=== PATIENT | male | born 1990 | race American Indian/Alaskan Native ===

== ENCOUNTER 2019-08-02 14:12 | Inpatient (IN) | payer OTHER ==
--- NOTE | 2019-08-02 14:39 | Event Note ---
ED Screening Note Date of service: 08/02/19 ED Screening Note: c/o thirst. N/V, and malaise x 1 week states weight loss +urinary frequency This initial assessment/diagnostic orders/clinical plan/treatment(s) is/are subject to change based on patients health status, clinical progression and re- assessment by fellow clinical providers in the ED. Further treatment and workup at subsequent clinical providers discretion. Patient/guardian urged not to elope from the ED as their condition may be serious if not clinically assessed and managed. Initial orders include: labs
[2019-08-02 16:10] LABS: Basophils % (Auto) 0.6 % (0.0-1.8); Eosinophils % (Auto) 0.2 % (0.0-4.3); Hematocrit 46.3 % (35.5-45.6); Hemoglobin 15.6 gm/dl (11.8-15.2); Lymphocytes # (Auto) 1.8 K/mm3 (1.2-5.4); Lymphocytes % (Auto) 23.4 % (13.4-35.0); Mean Corpuscular HGB Conc 34 % (32-34); Mean Corpuscular Volume 93 fl (84-94); Monocytes # (Auto) 0.3 K/mm3 (0.0-0.8); Monocytes % (Auto) 4.6 % (0.0-7.3); Platelet Count 290 K/mm3 (140-440); Red Blood Count 4.97 M/mm3 (3.65-5.03); Red Cell Distribution Width 13.1 % (13.2-15.2)
[2019-08-02 16:33] LABS: Alanine Aminotransferase 39 units/L (7-56); Albumin 4.5 g/dL (3.9-5); BUN/Creatinine Ratio 18; Blood Urea Nitrogen 16 mg/dL (9-20); Calcium 9.4 mg/dL (8.4-10.2); Hemolysis Index 26
[2019-08-02] MEDS ORDERED: SODIUM CHLORIDE 0.9% 1000 ML 1,000 ML IV ONE ×2 (17:04→17:05)
--- NOTE | 2019-08-02 17:11 | Emergency Department Report ---
ED General Adult HPI - General Chief complaint: Weakness Stated complaint: FLU LIKE SYMPTOMS Time Seen by Provider: 08/02/19 14:34 Source: patient Mode of arrival: Ambulatory Limitations: No Limitations - History of Present Illness Initial comments: 28-year-old male with known past medical history presents to ED with generalized weakness 2 weeks. Patient reports associated increased thirst and urination. Patient reports a couple episodes of nausea and vomiting. Denies any fever, abdominal pain, cough. -: week(s) (2) Severity scale (0 -10): 0 Consistency: constant Improves with: none Worsens with: none Associated Symptoms: malaise, nausea/vomiting, weakness. denies: chest pain, cough, fever/chills, headaches, shortness of breath Treatments Prior to Arrival: none - Related Data Allergies Allergy/AdvReac Type Severity Reaction Status Date / Time No Known Allergies Allergy Unverified 08/02/19 14:14 ED Review of Systems ROS: Stated complaint: FLU LIKE SYMPTOMS Other details as noted in HPI Comment: All other systems reviewed and negative Constitutional: denies: chills, fever Respiratory: denies: cough, shortness of breath Cardiovascular: denies: chest pain Endocrine: increased thirst, increased urine, unexplained weight loss Gastrointestinal: nausea, vomiting. denies: abdominal pain ED Past Medical Hx - Past Medical History Previous Medical History?: Yes Hx Kidney Stones: Yes (2014) - Surgical History Past Surgical History?: No - Social History Smoking Status: Current Every Day Smoker Substance Use Type: Alcohol, Marijuana ED Physical Exam - General Limitations: No Limitations General appearance: alert, in no apparent distress - Head Head exam: Present: atraumatic, normocephalic - Eye Eye exam: Present: normal appearance, EOMI - ENT ENT exam: Present: mucous membranes moist - Neck Neck exam: Present: normal inspection - Respiratory Respiratory exam: Present: normal lung sounds bilaterally. Absent: respiratory distress - Cardiovascular Cardiovascular Exam: Present: regular rate, normal rhythm - GI/Abdominal GI/Abdominal exam: Present: soft. Absent: distended, tenderness - Extremities Exam Extremities exam: Present: normal inspection - Neurological Exam Neurological exam: Present: alert, oriented X3 - Psychiatric Psychiatric exam: Present: normal affect, normal mood - Skin Skin exam: Present: warm, dry, intact, normal color ED Course Vital Signs 08/02/19 14:39 Temperature 97.4 F L Pulse Rate 74 Respiratory 16 Rate Blood Pressure 155/94 [Right] O2 Sat by Pulse 100 Oximetry ED Medical Decision Making - Lab Data Result diagrams: 08/02/19 15:32 08/02/19 20:32 - Medical Decision Making Pt w/ new-onset diabetes. Found to be in DKA. Glucose 588, bicarb 16, anion gap 32, VBG 7.196. Serum ketones present. IV fluids administered, insulin drip initiated. Pt will be admitted to [facility], Dr Stone, for further katherinemarc vasquez. - Differential Diagnosis hyperglycemia, DKA Critical Care Time: Yes Critical care time in (mins) excluding proc time.: 35 Critical care attestation.: If time is entered above; I have spent that time in minutes in the direct care of this critically ill patient, excluding procedure time. Critical Care Time: 35 minutes ED Disposition Clinical Impression: Diabetes mellitus, new onset, Diabetic ketoacidosis Disposition: OP ADMIT IP TO THIS HOSP Is pt being admited?: Yes Condition: Stable Time of Disposition: 17:23
[2019-08-02] MEDS ORDERED: INSULIN REGULAR, HUMAN 100 UNITS in SODIUM CHLORIDE 0.9% 99 ML IV SCH ×2 (18:00→19:00)
--- NOTE | 2019-08-02 18:05 | History and Physical Report ---
History of Present Illness Date of examination: 08/02/19 Date of admission: 08/02/2019 Chief complaint: Gen weakness for 2 weeks. N/V for 2 days History of present illness: 28-year-old male with known past medical history presents to ED with generalized weakness 2 weeks. Patient reports associated increased thirst and urination. Patient reports a few episodes of nausea and vomiting for 2 days. Denies any fever, abdominal pain, cough. -: week(s) (2) Severity scale (0 -10): 0 Consistency: constant Improves with: none Worsens with: none Associated Symptoms: malaise, nausea/vomiting, weakness. denies: chest pain, cough, fever/chills, headaches, shortness of breath Treatments Prior to Arrival: none Past Medical History Previous Medical History?: Yes Hx Kidney Stones: Yes (2014) Surgical History Past Surgical History?: No Social History Smoking Status: Current Every Day Smoker Substance Use Type: Alcohol, Marijuana Family History Htn Review of Systems ROS: Stated complaint: FLU LIKE SYMPTOMS Other details as noted in HPI Comment: All other systems reviewed and negative Constitutional: denies: chills, fever,Increased thirst,Increased urination and increased appetite. Respiratory: denies: cough, shortness of breath Cardiovascular: denies: chest pain Endocrine: increased thirst, increased urine, unexplained weight loss Gastrointestinal: nausea, vomiting for 2 days denies: abdominal pain Medications and Allergies Allergies Allergy/AdvReac Type Severity Reaction Status Date / Time No Known Allergies Allergy Unverified 08/02/19 14:14 Home Medications Medication Instructions Recorded Confirmed Last Taken Type No Known Home Medications [No 08/03/19 08/03/19 Unknown History Reported Home Medications] Active Meds: Active Medications Insulin Human Regular 100 (units/ Sodium Chloride) 100 mls @ 1 mls/hr IV TITR TEMI; Protocol Last Admin: 08/02/19 17:48 Dose: 8 units/hr, 8 mls/hr Documented by: Sodium Chloride (Nacl 0.9% 1000 Ml) 1,000 mls @ 999 mls/hr IV BOLUS ONE Stop: 08/02/19 18:05 Exam - Constitutional Vitals: Temp Pulse Resp BP Pulse Ox 97.4 F L 74 16 155/94 100 08/02/19 14:39 08/02/19 14:39 08/02/19 14:39 08/02/19 14:39 08/02/19 14:39 General appearance: Present: no acute distress, well-nourished - EENT Eyes: Present: PERRL ENT: hearing intact, clear oral mucosa - Neck Neck: Present: supple, normal ROM - Respiratory Respiratory effort: normal Respiratory: bilateral: CTA - Cardiovascular Heart rate: 78 Rhythm: regular Heart Sounds: Present: S1 & S2. Absent: rub, click - Extremities Extremities: no ischemia, pulses intact, pulses symmetrical, No edema Peripheral Pulses: within normal limits - Abdominal General gastrointestinal: Present: soft, non-tender, non-distended, normal bowel sounds Male genitourinary: Present: normal - Rectal Rectal Exam: deferred - Integumentary Integumentary: Present: clear, warm, dry - Musculoskeletal Musculoskeletal: gait normal, strength equal bilaterally - Psychiatric Psychiatric: appropriate mood/affect, intact judgment & insight - Neurologic Neurologic: CNII-XII intact, moves all extremities - Allied Health Allied health notes reviewed: nursing, case management Results - Labs CBC & Chem 7: 08/02/19 15:32 08/03/19 04:15 Labs: Laboratory Last Values WBC 7.6 K/mm3 (4.5-11.0) 08/02/19 15:32 RBC 4.97 M/mm3 (3.65-5.03) 08/02/19 15:32 Hgb 15.6 gm/dl (11.8-15.2) H 08/02/19 15:32 Hct 46.3 % (35.5-45.6) H 08/02/19 15:32 MCV 93 fl (84-94) 08/02/19 15:32 MCH 31 pg (28-32) 08/02/19 15:32 MCHC 34 % (32-34) 08/02/19 15:32 RDW 13.1 % (13.2-15.2) L 08/02/19 15:32 Plt Count 290 K/mm3 (140-440) 08/02/19 15:32 Lymph % (Auto) 23.4 % (13.4-35.0) 08/02/19 15:32 [place] % (Auto) 4.6 % (0.0-7.3) 08/02/19 15:32 Eos % (Auto) 0.2 % (0.0-4.3) 08/02/19 15:32 Baso % (Auto) 0.6 % (0.0-1.8) 08/02/19 15:32 Lymph # 1.8 K/mm3 (1.2-5.4) 08/02/19 15:32 [place] # 0.3 K/mm3 (0.0-0.8) 08/02/19 15:32 Eos # 0.0 K/mm3 (0.0-0.4) 08/02/19 15:32 Baso # 0.0 K/mm3 (0.0-0.1) 08/02/19 15:32 Seg Neutrophils % 71.2 % (40.0-70.0) H 08/02/19 15:32 Seg Neutrophils # 5.4 K/mm3 (1.8-7.7) 08/02/19 15:32 Sodium 129 mmol/L (137-145) L 08/02/19 15:32 Potassium 4.6 mmol/L (3.6-5.0) 08/02/19 15:32 Chloride 85.9 mmol/L (98-107) L 08/02/19 15:32 Carbon Dioxide 16 mmol/L (22-30) L 08/02/19 15:32 Anion Gap 32 mmol/L 08/02/19 15:32 BUN 16 mg/dL (9-20) 08/02/19 15:32 Creatinine 0.9 mg/dL (0.8-1.5) 08/02/19 15:32 Estimated GFR > 60 ml/min 08/02/19 15:32 BUN/Creatinine Ratio 18 % 08/02/19 15:32 Glucose 588 mg/dL (75-100) H* 08/02/19 15:32 POC Glucose 434 (70-105) H 08/02/19 17:34 Calcium 9.4 mg/dL (8.4-10.2) 08/02/19 15:32 Total Bilirubin 0.60 mg/dL (0.1-1.2) 08/02/19 15:32 AST 44 units/L (5-40) H 08/02/19 15:32 ALT 39 units/L (7-56) 08/02/19 15:32 Alkaline Phosphatase 95 units/L (35-129) 08/02/19 15:32 Total Protein 7.6 g/dL (6.3-8.2) 08/02/19 15:32 Albumin 4.5 g/dL (3.9-5) 08/02/19 15:32 Albumin/Globulin Ratio 1.5 % 08/02/19 15:32 Short CBC 08/02/19 Range/Units 15:32 WBC 7.6 (4.5-11.0) K/mm3 Hgb 15.6 H (11.8-15.2) gm/dl Hct 46.3 H (35.5-45.6) % Plt Count 290 (140-440) K/mm3 BMP 08/02/19 08/02/19 08/02/19 15:32 18:00 18:45 Sodium 129 L 124 L 127 L Potassium 4.6 5.3 H 4.3 Chloride 85.9 L 87.0 L 92.7 L Carbon Dioxide 16 L 14 L 14 L BUN 16 19 18 Creatinine 0.9 0.8 0.9 Glucose 588 H* 486 H 372 H Calcium 9.4 9.6 9.0 08/02/19 08/02/19 08/03/19 20:32 22:50 04:15 Sodium 132 L 133 L 138 Potassium 4.1 3.9 3.3 L Chloride 97.2 L 98.2 102.5 Carbon Dioxide 20 L 22 22 BUN 16 14 10 Creatinine 0.8 0.7 L 0.7 L Glucose 238 H 243 H 73 L Calcium 8.5 8.6 8.7 Liver Function 08/02/19 Range/Units 15:32 Total Bilirubin 0.60 (0.1-1.2) mg/dL AST 44 H (5-40) units/L ALT 39 (7-56) units/L Alkaline Phosphatase 95 (35-129) units/L Albumin 4.5 (3.9-5) g/dL Urine 08/02/19 Range/Units 18:18 Urine Color Straw (Yellow) Urine pH 5.0 (5.0-7.0) Ur Specific [place] 1.027 (1.003-1.030) Urine Protein <15 mg/dl (Negative) mg/dL Urine Glucose (UA) >=500 (Negative) mg/dL Assessment and Plan Assessment and plan: CCT 40 minutes Advance Directives: Yes (Full code) VTE prophylaxis?: Chemical Plan of care discussed with patient/family: Yes - Patient Problems (1) Diabetic ketoacidosis Current Visit: Yes Status: Acute Qualifiers: Diabetes mellitus type: other specified (including JASWANT) Diabetes mellitus complication detail: without coma Qualified Code(s): E13.10 - Other specified diabetes mellitus with ketoacidosis without coma Plan to address problem: DKA protocol. IV insulin drip and IV fluids Anion gap 32. ICU admission Ketones 80 in urine. Question is whether he is JASWANT or Type 1 diabetes.More in favor of JASWANT-Mature onset of Diabetes in Young.It is important bcoz whether he can be managed on oral hypoglycemics Needs referral to Endocrinology after discharge. (2) Hyponatremia Current Visit: Yes Status: Acute Plan to address problem: Should self correct with IV NS and IV INSULIN> (3) DVT prophylaxis Current Visit: Yes Status: Acute Plan to address problem: On Heparin and GI prophylaxis
[2019-08-02] MEDS ORDERED: oxyCODONE /ACETAMINOPHEN 5-325MG TAB PO PRN (18:06)
[2019-08-02] MEDS ORDERED: HYDROmorphone 1 MG/1 ML INJ IV PRN (18:06)
[2019-08-02] MEDS ORDERED: ONDANSETRON 4 MG/2 ML INJ IV PRN (18:06)
[2019-08-02] MEDS ORDERED: ACETAMINOPHEN 325 MG TAB PO PRN (18:06)
[2019-08-02] MEDS ORDERED: MORPHINE 2 MG/1 ML INJ IV PRN (18:06)
[2019-08-02] MEDS ORDERED: DEXTROSE 50% IN WATER (25GM) 50 ML SYRINGE IV PRN (18:13)
[2019-08-02 18:31] LABS: Bilirubin,Urine NEG (Negative); Blood,Urine SM (Negative); Color,Urine Straw (Yellow); Mucus,Urine FEW /HPF; Protein,Urine <15 mg/dL mg/dL (Negative); Urobilinogen,Urine < 2.0 mg/dL (<2.0); WBC,Urine < 1.0 /HPF (0.0-6.0)
[2019-08-02 18:36] LABS: BUN/Creatinine Ratio 24; Blood Urea Nitrogen 19 mg/dL (9-20); Calcium 9.6 mg/dL (8.4-10.2); Hemolysis Index 27
[2019-08-02] MEDS ORDERED: D5W/0.45% NACL/KCL 20 MEQ 20 MEQ/1,000 ML BAG IV SCH (19:00)
[2019-08-02 19:01] LABS: BUN/Creatinine Ratio 20; Blood Urea Nitrogen 18 mg/dL (9-20); Hemolysis Index 15
[2019-08-02] MEDS: POTASSIUM CHLORIDE 10 MEQ 10 MEQ/100 ML BAG IV SCH ×5 (19:46→23:00)
[2019-08-02] MEDS ORDERED: SODIUM CHLORIDE 0.9% 1000 ML 1,000 ML ONE (20:00)
[2019-08-02] MEDS ORDERED: POTASSIUM CHLORIDE 10 MEQ 10 MEQ/100 ML BAG IV ONE (20:55)
[2019-08-02 20:59] LABS: BUN/Creatinine Ratio 20; Blood Urea Nitrogen 16 mg/dL (9-20); Calcium 8.5 mg/dL (8.4-10.2); Hemolysis Index 4
[2019-08-02 23:39] LABS: BUN/Creatinine Ratio 20; Blood Urea Nitrogen 14 mg/dL (9-20); Calcium 8.6 mg/dL (8.4-10.2); Hemolysis Index 12
[2019-08-03] MEDS ORDERED: SODIUM CHLORIDE 0.9% 1000 ML 1,000 ML IV SCH (00:30)
[2019-08-03 04:52] LABS: BUN/Creatinine Ratio 14; Blood Urea Nitrogen 10 mg/dL (9-20); Calcium 8.7 mg/dL (8.4-10.2); Hemolysis Index 6
[2019-08-03] MEDS ORDERED: POTASSIUM CHLORIDE ER 20 MEQ TAB PO ONE ×2 (05:02→14:00)
[2019-08-03] MEDS ORDERED: DEXTROSE 50% IN WATER (25GM) 50 ML SYRINGE IV PRN (05:02)
[2019-08-03] MEDS: POTASSIUM CHLORIDE 10 MEQ 10 MEQ/100 ML BAG IV SCH ×5 (05:30→05:36)
[2019-08-03] MEDS: INSULIN LISPRO 100 UNIT/ML SUB-Q SCH ×4 (08:00→22:22)
[2019-08-03] MEDS ORDERED: INSULIN GLARGINE 100 UNITS/ML SUB-Q SCH (08:00)
[2019-08-03] MEDS: HEPARIN 5,000 UNIT/1 ML VIAL SUB-Q SCH ×2 (09:19→22:22)
[2019-08-03] MEDS: FAMOTIDINE 10 MG TAB PO SCH ×2 (09:20→22:23)
--- NOTE | 2019-08-03 09:34 | Progress Note ---
Assessment and Plan Assessment and plan: Diabetic ketoacidosis Patient was started on Insulin drip now off Insulin drip On Lantus bid Started on diet May switch to Novolin 70/30 bid Transfer to [facility] New onset diabetes mellitus Just now diagnosed this admission [employer] consult Hyponatremia Improved Stable to transfer to [facility] History Interval history: nausea and vomiting resolved Gen weakness improved Hospitalist Physical - Physical exam Narrative exam: GEN: Not in acute distress, sitting up in bed HEENT: Normocephalic, atraumatic, Neck: supple, No JVD Lungs: Clear to auscultation bilaterally Heart;S1 and S2 reg, no murmurs Abd:soft, non tender, non distended, normal bowel sounds Ext: No edema, no clubbing, no cyanosis Neuro: AAO X 3, normal speech, moves all ext - Constitutional Vitals: Temp Pulse Resp BP Pulse Ox 98.2 F 58 L 18 115/78 99 08/03/19 03:30 08/03/19 06:00 08/02/19 21:51 08/03/19 06:00 08/03/19 06:00 General appearance: Present: no acute distress Results - Labs CBC & Chem 7: 08/02/19 15:32 08/03/19 04:15 Labs: Laboratory Last Values WBC 7.6 K/mm3 (4.5-11.0) 08/02/19 15:32 RBC 4.97 M/mm3 (3.65-5.03) 08/02/19 15:32 Hgb 15.6 gm/dl (11.8-15.2) H 08/02/19 15:32 Hct 46.3 % (35.5-45.6) H 08/02/19 15:32 MCV 93 fl (84-94) 08/02/19 15:32 MCH 31 pg (28-32) 08/02/19 15:32 MCHC 34 % (32-34) 08/02/19 15:32 RDW 13.1 % (13.2-15.2) L 08/02/19 15:32 Plt Count 290 K/mm3 (140-440) 08/02/19 15:32 Lymph % (Auto) 23.4 % (13.4-35.0) 08/02/19 15:32 [place] % (Auto) 4.6 % (0.0-7.3) 08/02/19 15:32 Eos % (Auto) 0.2 % (0.0-4.3) 08/02/19 15:32 Baso % (Auto) 0.6 % (0.0-1.8) 08/02/19 15:32 Lymph # 1.8 K/mm3 (1.2-5.4) 08/02/19 15:32 [place] # 0.3 K/mm3 (0.0-0.8) 08/02/19 15:32 Eos # 0.0 K/mm3 (0.0-0.4) 08/02/19 15:32 Baso # 0.0 K/mm3 (0.0-0.1) 08/02/19 15:32 Seg Neutrophils % 71.2 % (40.0-70.0) H 08/02/19 15:32 Seg Neutrophils # 5.4 K/mm3 (1.8-7.7) 08/02/19 15:32 VBG pH 7.196 (7.320-7.420) L* 08/02/19 18:00 Sodium 138 mmol/L (137-145) 08/03/19 04:15 Potassium 3.3 mmol/L (3.6-5.0) L 08/03/19 04:15 Chloride 102.5 mmol/L (98-107) 08/03/19 04:15 Carbon Dioxide 22 mmol/L (22-30) 08/03/19 04:15 Anion Gap 17 mmol/L 08/03/19 04:15 BUN 10 mg/dL (9-20) 08/03/19 04:15 Creatinine 0.7 mg/dL (0.8-1.5) L 08/03/19 04:15 Estimated GFR > 60 ml/min 08/03/19 04:15 BUN/Creatinine Ratio 14 % 08/03/19 04:15 Glucose 73 mg/dL (75-100) L 08/03/19 04:15 POC Glucose 163 (70-105) H 08/03/19 07:27 Hemoglobin A1c 12.8 % (4-6) H 08/02/19 18:45 Ketones Quantitative 20 (Negative) 08/02/19 18:00 Calcium 8.7 mg/dL (8.4-10.2) 08/03/19 04:15 Phosphorus 2.90 mg/dL (2.5-4.5) D 08/02/19 18:45 Magnesium 1.90 mg/dL (1.7-2.3) 08/02/19 18:45 Total Bilirubin 0.60 mg/dL (0.1-1.2) 08/02/19 15:32 AST 44 units/L (5-40) H 08/02/19 15:32 ALT 39 units/L (7-56) 08/02/19 15:32 Alkaline Phosphatase 95 units/L (35-129) 08/02/19 15:32 Total Protein 7.6 g/dL (6.3-8.2) 08/02/19 15:32 Albumin 4.5 g/dL (3.9-5) 08/02/19 15:32 Albumin/Globulin Ratio 1.5 % 08/02/19 15:32 Urine Color Straw (Yellow) 08/02/19 18:18 Urine Turbidity Clear (Clear) 08/02/19 18:18 Urine pH 5.0 (5.0-7.0) 08/02/19 18:18 Ur Specific [place] 1.027 (1.003-1.030) 08/02/19 18:18 Urine Protein <15 mg/dl mg/dL (Negative) 08/02/19 18:18 Urine Glucose (UA) >=500 mg/dL (Negative) 08/02/19 18:18 Urine Ketones 80 mg/dL (Negative) 08/02/19 18:18 Urine Blood Sm (Negative) 08/02/19 18:18 Urine Nitrite Neg (Negative) 08/02/19 18:18 Urine Bilirubin Neg (Negative) 08/02/19 18:18 Urine Urobilinogen < 2.0 mg/dL (<2.0) 08/02/19 18:18 Ur Leukocyte Esterase Neg (Negative) 08/02/19 18:18 Urine WBC (Auto) < 1.0 /HPF (0.0-6.0) 08/02/19 18:18 Urine RBC (Auto) 2.0 /HPF (0.0-6.0) 08/02/19 18:18 Urine Mucus Few /HPF 08/02/19 18:18 Active Medications - Current Medications Current Medications: Generic Name Dose Route Start Last Admin Trade Name Freq PRN Reason Stop Dose Admin Acetaminophen 650 mg 08/02/19 18:06 Tylenol PO Q4H PRN Pain MILD(1-3)/Fever >100.5/OLEA Dextrose 50 ml 08/03/19 05:02 D50w (25gm) Syringe IV Q30MIN PRN Hypoglycemia Protocol Famotidine 10 mg 08/03/19 10:00 08/03/19 09:20 Pepcid PO 10 mg BID TEMI Administration Heparin Sodium (Porcine) 5,000 unit 08/03/19 10:00 08/03/19 09:19 Heparin SUB-Q 5,000 unit Q12HR TEMI Administration Hydromorphone HCl 0.5 mg 08/02/19 18:06 Dilaudid IV Q3H PRN Pain , Severe (7-10) Sodium Chloride 1,000 mls @ 125 mls/hr 08/03/19 00:30 08/03/19 00:40 Nacl 0.9% 1000 Ml IV 125 mls/hr DIRECT TEMI Administration Insulin Glargine 15 units 08/03/19 08:00 08/03/19 09:18 Lantus SUB-Q 15 units BID TEMI Administration Insulin Human Lispro 0 unit 08/03/19 07:30 08/03/19 08:00 Humalog SUB-Q 3 unit ACHS TEMI Administration Protocol Morphine Sulfate 2 mg 08/02/19 18:06 Morphine IV Q4H PRN Pain, Moderate (4-6) Ondansetron HCl 4 mg 08/02/19 18:06 Zofran IV Q8H PRN Nausea And Vomiting Oxycodone/Acetaminophen 1 tab 08/02/19 18:06 Percocet 5/325 PO Q6H PRN Pain, Moderate (4-6) Sodium Chloride 10 ml 08/02/19 22:00 08/03/19 09:20 Sodium Chloride Flush Syringe 10 Ml IV 08/05/19 21:59 10 ml BID TEMI Administration Sodium Chloride 10 ml 08/02/19 18:06 Sodium Chloride Flush Syringe 10 Ml IV PRN PRN LINE FLUSH
[2019-08-03] MEDS ORDERED: INSULIN NPH/REGULAR 70/30 INJ SUB-Q SCH (17:00)
[2019-08-04 08:05] LABS: Hematocrit 43.4 % (35.5-45.6); Hemoglobin 15.1 gm/dl (11.8-15.2); Mean Corpuscular HGB Conc 35 % (32-34); Mean Corpuscular Volume 92 fl (84-94); Platelet Count 289 K/mm3 (140-440); Red Blood Count 4.73 M/mm3 (3.65-5.03); Red Cell Distribution Width 13.4 % (13.2-15.2)
[2019-08-04 08:20] LABS: BUN/Creatinine Ratio 13; Blood Urea Nitrogen 10 mg/dL (9-20); Calcium 9.1 mg/dL (8.4-10.2); Hemolysis Index 7
[2019-08-04] MEDS ORDERED: INSULIN NPH/REGULAR 70/30 INJ SUB-Q SCH ×2 (08:30→10:00)
[2019-08-04] MEDS: INSULIN LISPRO 100 UNIT/ML SUB-Q SCH ×2 (09:37→13:01)
[2019-08-04] MEDS: HEPARIN 5,000 UNIT/1 ML VIAL SUB-Q SCH (10:18)
[2019-08-04] MEDS: FAMOTIDINE 10 MG TAB PO SCH (10:18)
--- NOTE | 2019-08-04 11:13 | Discharge Summary ---
Providers - Providers Date of Admission: 08/02/19 17:39 Date of discharge: 08/04/19 Attending physician: FLORIDALMA BALES 08/02/19 18:13 Consult to Dietitian/Nutrition [CONS] Routine Physician Instructions: New-onset diabetes Reason For Exam: DKA Reason for Consult: Nutrition Recommendations Reason for Consult: Diet education Primary care physician: CLINICAL SPECIALIST VASCULAR Hospitalization Condition: Fair Disposition: DC-01 TO HOME OR SELFCARE Exam - Constitutional Vitals: Temp Pulse Resp BP Pulse Ox 98.4 F 83 20 118/77 100 08/03/19 22:08 08/03/19 22:08 08/03/19 22:08 08/03/19 22:08 08/03/19 22:08 Plan Activity: no restrictions Diet: diabetic Special Instructions: other (Check glucose before every meal and bedtime and show records to Doctor) Plan of Treatment: 1.Follow up with PCP or [facility] in 1 week Follow up with: PRIMARY CARE,MD [Primary Care Provider] - 3-5 Days Prescriptions: Insulin NPH/Regular [NovoLIN 70/30] 15 unit SUB-Q BIDDIAB #1 vial
[2019-08-04 12:41] VITALS: BP 114/75
== END 2019-08-04 16:16 | disposition home or self-care (01) | DRG 638 ==
LOC: ED 14:12 → CC1 17:39 → 3A 08-03 13:41
PROVIDERS: ADMIT Internal Medicine; ATTEND Internal Medicine
DX: E11.10 Type 2 diabetes mellitus with ketoacidosis without coma (principal); E87.1 Hypo-osmolality and hyponatremia; F12.90 Cannabis use, unspecified, uncomplicated; F17.200 Nicotine dependence, unspecified, uncomplicated; Z87.442 Personal history of urinary calculi; Z72.89 Other problems related to lifestyle; Z82.49 Family history of ischemic heart disease and other diseases of the circulatory system
CPT/HCPCS: 36415; 80048; 80053; 81001; 82010; 82805; 82962; 83036; 83735; 84100; 85025; 85027; 96360; 96361; 99406; G0378; J1644; J1815; J3480; J7030

== ENCOUNTER 2019-11-26 07:52 | Inpatient (IN) | payer OTHER ==
[2019-11-26] MEDS ORDERED: SODIUM CHLORIDE 0.9% 500 ML 500 ML IV ONE (08:05)
[2019-11-26] MEDS ORDERED: METOCLOPRAMIDE 10 MG/2 ML INJ IV ONE (08:05)
--- NOTE | 2019-11-26 08:06 | Emergency Department Report ---
ED General Adult HPI - General Chief complaint: Hyperglycemia Stated complaint: HIGH BLOOD SUGAR PUI?: No Time Seen by Provider: 11/26/19 07:59 Source: EMS ( EMS documentation not available at time of chart dictation EMS documentation not available at time of chart dictation ), RN notes reviewed Mode of arrival: Ambulatory Limitations: No Limitations - History of Present Illness Initial comments: Patient is a pleasant and cooperative 28-year-old gentleman who is not known to myself previously, has a history of diabetes, hemoglobin A1c greater than 12 in July of this year, typically takes insulin 70/30, denies fever, cough, coronavirus symptoms, and does not have a local primary care doctor. A family member accidentally threw out his insulin a few days ago. He presents to the ER today with a complaint of high blood sugar, and nausea and vomiting. There is no complaint of pain. Denies headache, neck pain, chest pain, abdominal pain, shortness of breath, irritative/obstructive urinary symptoms. Emesis is nonbl oody and nonbilious. Vomiting started yesterday. He is not sure how many times he threw up. -: Gradual, days(s) Consistency: constant Improves with: none Worsens with: eating - Related Data Previous Rx's Medication Instructions Recorded Last Taken Type Insulin NPH/Regular [NovoLIN 70/30] 15 unit SUB-Q BIDDIAB #1 vial 08/04/19 11/23/19 Rx Allergies Allergy/AdvReac Type Severity Reaction Status Date / Time No Known Allergies Allergy Verified 11/26/19 07:57 ED Review of Systems ROS: Stated complaint: HIGH BLOOD SUGAR Other details as noted in HPI Constitutional: malaise Eyes: denies: eye discharge ENT: denies: epistaxis Respiratory: denies: wheezing Cardiovascular: denies: chest pain, syncope Endocrine: increased thirst Gastrointestinal: nausea, vomiting Genitourinary: denies: dysuria Musculoskeletal: denies: back pain Skin: as per HPI Neurological: as per HPI, weakness Psychiatric: as per HPI Hematological/Lymphatic: as per HPI ED Past Medical Hx - Past Medical History Previous Medical History?: Yes Hx Congestive Heart Failure: No Hx Diabetes: Yes Hx Kidney Stones: Yes (2014) Hx Asthma: No Hx COPD: No - Surgical History Past Surgical History?: No - Social History Smoking Status: Never Smoker - Medications Home Medications: Home Medications Medication Instructions Recorded Confirmed Last Taken Type Insulin NPH/Regular [NovoLIN 70/30] 15 unit SUB-Q BIDDIAB #1 vial 08/04/19 11/26/19 11/23/19 Rx ED Physical Exam - General Limitations: No Limitations General appearance: alert, in no apparent distress - Head Head exam: Present: atraumatic, normocephalic - Eye Eye exam: Present: normal appearance, EOMI. Absent: nystagmus - ENT ENT exam: Present: normal exam, normal orophraynx, mucous membranes moist, normal external ear exam - Neck Neck exam: Present: normal inspection, full ROM. Absent: tenderness, meningismus - Respiratory Respiratory exam: Present: normal lung sounds bilaterally. Absent: respiratory distress - Cardiovascular Cardiovascular Exam: Present: regular rate, normal rhythm, normal heart sounds. Absent: bradycardia, tachycardia, irregular rhythm, systolic murmur, diastolic murmur, rubs, gallop - GI/Abdominal GI/Abdominal exam: Present: soft. Absent: distended, tenderness, guarding, rebound, rigid, pulsatile mass - Rectal Rectal exam: Present: deferred - Extremities Exam Extremities exam: Present: normal inspection, full ROM, other (2+ pulses noted in the bilateral upper and lower extremities. There is no palpable cord. negative Homans sign. Muscular compartments are soft. The pelvis is stable.). Absent: pedal edema, calf tenderness - Back Exam Back exam: Present: normal inspection, full ROM. Absent: tenderness, CVA tenderness (R), CVA tenderness (L), paraspinal tenderness, vertebral tenderness - Neurological Exam Neurological exam: Present: alert, normal gait, other (No facial droop. Tongue midline. Extraocular movements intact bilaterally. Facial sensation intact to light touch in V1, V2, V3 distribution bilaterally. 5 and a 5 strength in 4 extremities. Sensation intact to light touch in 4 extremities.). Absent: motor sensory deficit - Psychiatric Psychiatric exam: Present: anxious - Skin Skin exam: Present: warm, dry, intact, normal color. Absent: rash ED Course Vital Signs 11/26/19 11/26/19 07:55 08:02 Temperature 97.8 F Pulse Rate 78 Respiratory 18 Rate Blood Pressure 143/97 158/84 O2 Sat by Pulse 100 95 Oximetry - Reevaluation(s) Reevaluation #1: 11/26/19 08:28 Differential diagnosis, including but not limited to: Gastroparesis, hyperglycemia, dehydration, electrolyte derangement, diabetic ketoacidosis Assessment and plan: 28-year-old gentleman who ran out of of insulin therapy secondary to family member accidentally throwing out his prescriptions, presenting with a complaint of painless hyperglycemia, and nausea and vomiting. The patient is afebrile with reassuring vital signs. He is nauseous and retching at this time. I have requested that nursing team reconcile his medications, we will obtain EKG, appropriate screening laboratory studies, give IV fluids, antiemetic medication, and reassess. Reevaluation #2: 11/26/19 10:10 Laboratory studies show metabolic acidosis, anion gap, decreased CO2. Suspect that this is likely multifactorial, with both contributions from diabetes, possible diabetic ketoacidosis, and nausea and vomiting. IV fluids ordered, insulin, insulin drip ordered. Hospital physician, Dr. Igor Bishop to admit patient to the medical service. Discussed findings with patient, he states he is amenable to hospitalization. His nausea is resolved at this time. ED Medical Decision Making - Lab Data Result diagrams: 11/26/19 09:26 11/26/19 09:26 Vital Signs 11/26/19 07:55 Temperature 97.8 F Pulse Rate 78 Respiratory 18 Rate Blood Pressure 143/97 O2 Sat by Pulse 100 Oximetry - EKG Data -: EKG Interpreted by Me EKG shows normal: sinus rhythm Rate: normal - EKG Data 11/26/19 08:53 Sinus rhythm, 84 bpm, normal axis, HI interval within normal limits, QTC is prolonged, high left ventricular voltage, early repolarization, biphasic T waves V2, EKG abnormal, there is no endorsement of chest pain, the EKG is not a STEMI. Critical Care Time: Yes Critical care time in (mins) excluding proc time.: 35 Critical care attestation.: If time is entered above; I have spent that time in minutes in the direct care of this critically ill patient, excluding procedure time. ED Disposition Clinical Impression: Diabetic ketoacidosis Qualifiers: Diabetes mellitus type: type 1 Diabetes mellitus complication detail: without coma Qualified Code(s): E10.10 - Type 1 diabetes mellitus with ketoacidosis without coma Disposition: 09 OP ADMIT IP TO THIS HOSP Is pt being admited?: Yes Does the pt Need Aspirin: No Condition: Good Instructions: Diabetic Ketoacidosis (ED) Referrals: PRIMARY CARE, [Primary Care Provider] - 3-5 Days
[2019-11-26 09:46] LABS: BUN/Creatinine Ratio 7; Blood Urea Nitrogen 8 mg/dL (9-20); Calcium 9.6 mg/dL (8.4-10.2); Hemolysis Index 33
[2019-11-26 09:54] LABS: Hematocrit 46.9 % (35.5-45.6); Hemoglobin 15.6 gm/dl (11.8-15.2)
[2019-11-26] MEDS ORDERED: INSULIN REGULAR, HUMAN 100 UNITS/1 ML IV ONE (10:07)
[2019-11-26] MEDS ORDERED: DEXTROSE 50% IN WATER (25GM) 50 ML SYRINGE IV PRN (10:07)
[2019-11-26] MEDS ORDERED: INSULIN REGULAR, HUMAN 100 UNITS in SODIUM CHLORIDE 0.9% 99 ML IV SCH ×3 (10:30→13:00)
[2019-11-26] MEDS ORDERED: D5W/0.45% NACL/KCL 20 MEQ 20 MEQ/1,000 ML BAG IV SCH (11:00)
[2019-11-26] MEDS ORDERED: INSULIN REGULAR, HUMAN 100 UNITS/1 ML ONE (11:02)
[2019-11-26] MEDS ORDERED: D5W/0.45% NACL/KCL 20 MEQ 20 MEQ/1,000 ML BAG IV ONE (11:03)
--- NOTE | 2019-11-26 12:30 | History and Physical Report ---
History of Present Illness Date of examination: 11/26/19 Date of admission: 11/26/19 10:13 Chief complaint: Elevated BG History of present illness: 28-year-old male with past medical history of type 1 diabetes mellitus who presents to the emergency department with complaints of hyperglycemia, nausea and vomiting. The patient typically takes 70/30 insulin but A family member accidentally threw out his insulin a few days ago. Denies headache, neck pain, chest pain, abdominal pain, shortness of breath, irritative/obstructive urinary symptoms. Emesis is nonbloody and nonbilious. Patient denies any fever chills. No cough or cold-like symptoms. Patient reports that the vomiting started yesterday. Past History Past Medical History: diabetes Past Surgical History: No surgical history Social history: no significant social history Family history: no significant family history Medications and Allergies Allergies Allergy/AdvReac Type Severity Reaction Status Date / Time No Known Allergies Allergy Verified 11/26/19 07:57 Home Medications Medication Instructions Recorded Confirmed Last Taken Type Insulin NPH/Regular [NovoLIN 70/30] 15 unit SUB-Q BIDDIAB #1 vial 08/04/19 11/26/19 11/23/19 Rx Active Meds: Active Medications Dextrose (D50w (25gm) Syringe) 0 ml IV Q30MIN PRN; Protocol PRN Reason: Hypoglycemia Insulin Human Regular 100 (units/ Sodium Chloride) 100 mls @ 1 mls/hr IV TITR TEMI; Protocol Last Admin: 11/26/19 11:25 Dose: 5 units/hr, 5 mls/hr Documented by: Potassium Chloride/Dextrose/Sod Cl (D5w/0.45% Nacl/Kcl 20 Meq) 20 meq in 1,000 mls @ 125 mls/hr IV DIRECT TEMI Last Admin: 11/26/19 11:24 Dose: 125 mls/hr Documented by: Review of Systems All systems: negative Exam - Constitutional Vitals: Temp Pulse Resp BP Pulse Ox 97.8 F 101 H 16 118/82 100 11/26/19 07:55 11/26/19 11:00 11/26/19 11:00 11/26/19 11:00 11/26/19 11:00 General appearance: Present: no acute distress, well-nourished - EENT Eyes: Present: PERRL ENT: hearing intact, clear oral mucosa - Neck Neck: Present: supple, normal ROM - Respiratory Respiratory effort: normal Respiratory: bilateral: CTA - Cardiovascular Heart Sounds: Present: S1 & S2. Absent: rub, click - Extremities Extremities: pulses symmetrical, No edema Peripheral Pulses: within normal limits - Abdominal General gastrointestinal: Present: soft, non-tender, non-distended, normal bowel sounds Male genitourinary: Present: normal - Integumentary Integumentary: Present: clear, warm, dry - Musculoskeletal Musculoskeletal: gait normal, strength equal bilaterally - Psychiatric Psychiatric: appropriate mood/affect, intact judgment & insight - Neurologic Neurologic: CNII-XII intact, moves all extremities Results - Labs CBC & Chem 7: 11/26/19 09:26 11/26/19 09:26 Labs: Laboratory Last Values Hgb 15.6 gm/dl (11.8-15.2) H 11/26/19 09:26 Hct 46.9 % (35.5-45.6) H 11/26/19 09:26 Plt Count 248 K/mm3 (140-440) 11/26/19 09:26 Sodium 128 mmol/L (137-145) L 11/26/19 09:26 Potassium 4.4 mmol/L (3.6-5.0) 11/26/19 09:26 Chloride 93.5 mmol/L (98-107) L 11/26/19 09:26 Carbon Dioxide 5 mmol/L (22-30) L* 11/26/19 09:26 Anion Gap 34 mmol/L 11/26/19 09:26 BUN 8 mg/dL (9-20) L 11/26/19 09:26 Creatinine 1.1 mg/dL (0.8-1.5) 11/26/19 09:26 Estimated GFR > 60 ml/min 11/26/19 09:26 BUN/Creatinine Ratio 7 % 11/26/19 09:26 Glucose 344 mg/dL (75-100) H 11/26/19 09:26 POC Glucose 256 (70-105) H 11/26/19 11:23 Calcium 9.6 mg/dL (8.4-10.2) 11/26/19 09:26 Magnesium 1.90 mg/dL (1.7-2.3) 11/26/19 09:26 Total Creatine Kinase 111 units/L (55-170) 05/13/20 09:26 Peters/IV: IV Catheter Type [Right INT / Saline Lock Forearm] Assessment and Plan Assessment and plan: DKA. Patient will be continued on IV insulin drip until anion gap is closed. At that time, we will transition to his home medication of 70/30 insulin 15 units twice daily. Continue serial BMP, IV fluid hydration and monitor closely. Diabetes mellitus type 1. Continue as above. The high probability of a clinically significant, sudden or life threatening deterioration of the [endocrine] system(s) required my full and direct attention, intervention and personal management. The aggregate critical care time was [78] minutes. This time is in addition to time spent performing reported procedures but includes the following: [x] Data Review and interpretation [x] Patient assessment and monitoring of vital signs [x] Documentation [x] Medication orders and management
[2019-11-26 14:54] LABS: BUN/Creatinine Ratio 8; Blood Urea Nitrogen 8 mg/dL (9-20); Calcium 9.6 mg/dL (8.4-10.2); Hemolysis Index 83
[2019-11-26 16:20] LABS: BUN/Creatinine Ratio 8; Blood Urea Nitrogen 7 mg/dL (9-20); Calcium 9.6 mg/dL (8.4-10.2); Hemolysis Index 30
[2019-11-26 18:43] LABS: BUN/Creatinine Ratio 8; Blood Urea Nitrogen 7 mg/dL (9-20); Calcium 9.9 mg/dL (8.4-10.2); Hemolysis Index 39
[2019-11-26 21:02] LABS: BUN/Creatinine Ratio 8; Blood Urea Nitrogen 7 mg/dL (9-20); Calcium 9.4 mg/dL (8.4-10.2); Hemolysis Index 30
[2019-11-27] MEDS: INSULIN REGULAR, HUMAN 100 UNITS/1 ML SUB-Q SCH ×2 (01:37→16:59)
[2019-11-27] MEDS ORDERED: D5W/0.45% NACL/KCL 20 MEQ 20 MEQ/1,000 ML BAG IV ONE (02:44)
[2019-11-27 03:05] LABS: BUN/Creatinine Ratio 8; Blood Urea Nitrogen 6 mg/dL (9-20); Calcium 9.8 mg/dL (8.4-10.2); Hemolysis Index 5
[2019-11-27 04:08] LABS: BUN/Creatinine Ratio 8; Blood Urea Nitrogen 6 mg/dL (9-20); Calcium 9.7 mg/dL (8.4-10.2); Hemolysis Index 11
[2019-11-27] MEDS: ENOXAPARIN 40 MG/0.4 ML INJ SUB-Q SCH (10:05)
[2019-11-27] MEDS ORDERED: ENOXAPARIN 40 MG/0.4 ML INJ SUB-Q ONE (10:56)
[2019-11-27 11:11] LABS: BUN/Creatinine Ratio 5; Blood Urea Nitrogen 4 mg/dL (9-20); Calcium 9.8 mg/dL (8.4-10.2); Hemolysis Index 11
--- NOTE | 2019-11-27 11:14 | Progress Note ---
Assessment and Plan Assessment and plan: DKA. Resolved. Insulin drip will be discontinued. Patient will be transitioned to one-time dose of Lantus 8 units and then his home regimen of 7030 15 units twice daily. Diabetes mellitus type 1. Continue as above. History Interval history: No new issues overnight. Hospitalist Physical - Constitutional Vitals: Temp Pulse Resp BP Pulse Ox 97.8 F 74 18 124/72 98 11/26/19 07:55 11/27/19 10:45 11/27/19 10:45 11/27/19 10:45 11/27/19 10:45 General appearance: Present: no acute distress, well-nourished - EENT Eyes: Present: PERRL, EOM intact ENT: hearing intact, clear oral mucosa, dentition normal - Neck Neck: Present: supple, normal ROM - Respiratory Respiratory effort: normal Respiratory: bilateral: CTA - Cardiovascular Rhythm: regular Heart Sounds: Present: S1 & S2. Absent: gallop, rub - Extremities Extremities: no ischemia, No edema, Full ROM - Abdominal General gastrointestinal: soft, non-tender, non-distended, normal bowel sounds - Integumentary Integumentary: Present: clear, warm, dry - Neurologic Neurologic: CNII-XII intact, moves all extremities Results - Labs CBC & Chem 7: 11/26/19 09:26 11/27/19 10:31 Labs: Laboratory Last Values Hgb 15.6 gm/dl (11.8-15.2) H 11/26/19 09:26 Hct 46.9 % (35.5-45.6) H 11/26/19 09:26 Plt Count 248 K/mm3 (140-440) 11/26/19 09:26 Sodium 134 mmol/L (137-145) L 11/27/19 10:31 Potassium 3.7 mmol/L (3.6-5.0) 11/27/19 10:31 Chloride 100.3 mmol/L (98-107) 11/27/19 10:31 Carbon Dioxide 19 mmol/L (22-30) L 11/27/19 10:31 Anion Gap 18 mmol/L 11/27/19 10:31 BUN 4 mg/dL (9-20) L 11/27/19 10:31 Creatinine 0.8 mg/dL (0.8-1.5) 11/27/19 10:31 Estimated GFR > 60 ml/min 11/27/19 10:31 BUN/Creatinine Ratio 5 % 11/27/19 10:31 Glucose 127 mg/dL (75-100) H 11/27/19 10:31 POC Glucose 121 (70-105) H 11/27/19 10:42 Calcium 9.8 mg/dL (8.4-10.2) 11/27/19 10:31 Phosphorus 3.50 mg/dL (2.5-4.5) 11/26/19 09:26 Magnesium 1.90 mg/dL (1.7-2.3) 11/26/19 09:26 Total Creatine Kinase 111 units/L (55-170) 11/26/19 09:26 Peters/IV: IV Catheter Type [Right Peripheral IV Forearm] Active Medications - Current Medications Current Medications: Generic Name Dose Route Start Last Admin Trade Name Freq PRN Reason Stop Dose Admin Dextrose 50 ml 11/27/19 11:10 D50w (25gm) Syringe IV Q30MIN PRN Hypoglycemia Protocol Enoxaparin Sodium 40 mg 11/27/19 10:00 11/27/19 10:05 Enoxaparin SUB-Q 40 mg QDAY TEMI Administration Insulin Glargine 8 units 11/27/19 11:10 Lantus SUB-Q 11/27/19 11:11 ONCE ONE Insulin Human Isoph/Insulin Regular 15 unit 11/27/19 17:00 Humulin 70/30 SUB-Q BIDDIAB TEMI Insulin Human Regular 0 units 11/27/19 11:30 Humulin R SUB-Q ACHS TEMI Protocol Sodium Chloride 10 ml 11/26/19 22:00 11/27/19 10:00 Sodium Chloride Flush Syringe 10 Ml IV 10 ml BID TEMI Administration Sodium Chloride 10 ml 11/26/19 12:30 Sodium Chloride Flush Syringe 10 Ml IV PRN PRN LINE FLUSH
[2019-11-27] MEDS ORDERED: DEXTROSE 50% IN WATER (25GM) 50 ML SYRINGE IV PRN (11:30)
[2019-11-27] MEDS ORDERED: INSULIN GLARGINE 100 UNITS/ML SUB-Q ONE (12:00)
[2019-11-27 13:17] LABS: BUN/Creatinine Ratio 7; Blood Urea Nitrogen 5 mg/dL (9-20); Calcium 9.7 mg/dL (8.4-10.2); Hemolysis Index 21
--- NOTE | 2019-11-27 14:11 | Consultation ---
History of Present Illness Consult date: 11/27/19 Requesting physician: LILY CANTRELL Reason for consult: other (Diabetic ketoacidosis) History of present illness: 28-year-old male with past medical history of type 1 diabetes mellitus who presents to the emergency department with complaints of hyperglycemia, nausea and vomiting. The patient typically takes 70/30 insulin but A family member accidentally threw out his insulin a few days ago. Denies headache, neck pain, chest pain, abdominal pain, shortness of breath, irritative/obstructive urinary symptoms. Emesis is nonbloody and nonbilious. Patient denies any fever chills. No cough or cold-like symptoms. Patient reports that the vomiting started yesterday. Admitted fro DKA on insulin infusion. I was consulted for critical care management Patient seen and examined. Vitals, labs, medications, chart reviewed. ROS: Stated complaint: HIGH BLOOD SUGAR Other details as noted in HPI Constitutional: malaise Eyes: denies: eye discharge ENT: denies: epistaxis Respiratory: denies: wheezing Cardiovascular: denies: chest pain, syncope Endocrine: increased thirst Gastrointestinal: nausea, vomiting Genitourinary: denies: dysuria Musculoskeletal: denies: back pain Skin: as per HPI Neurological: as per HPI, weakness Psychiatric: as per HPI Hematological/Lymphatic: as per HPI - Past Medical History Previous Medical History?: Yes Hx Congestive Heart Failure: No Hx Diabetes: Yes Hx Kidney Stones: Yes (2014) Hx Asthma: No Hx COPD: No - Surgical History Past Surgical History?: No - Social History Smoking Status: Never Smoker Past History Past Medical History: diabetes Past Surgical History: No surgical history Social history: no significant social history Family history: no significant family history Medications and Allergies Allergies Allergy/AdvReac Type Severity Reaction Status Date / Time No Known Allergies Allergy Verified 11/26/19 07:57 Home Medications Medication Instructions Recorded Confirmed Last Taken Type Insulin NPH/Regular [NovoLIN 70/30] 15 unit SUB-Q BIDDIAB #1 vial 11/28/19 Unknown Rx Insulin NPH/Regular [NovoLIN 70/30] 15 unit SUB-Q BIDDIAB 30 Days 11/28/19 Unknown Rx units Active Meds: Active Medications Dextrose (D50w (25gm) Syringe) 50 ml IV Q30MIN PRN; Protocol PRN Reason: Hypoglycemia Enoxaparin Sodium (Enoxaparin) 40 mg SUB-Q QDAY [facility] Last Admin: 11/27/19 10:05 Dose: 40 mg Documented by: Insulin Human Isoph/Insulin Regular (Humulin 70/30) 15 unit SUB-Q BIDDIAB TEMI Insulin Human Regular (Humulin R) 0 units SUB-Q ACHS [facility]; Protocol Sodium Chloride (Sodium Chloride Flush Syringe 10 Ml) 10 ml IV BID [facility] Last Admin: 11/27/19 10:00 Dose: 10 ml Documented by: Sodium Chloride (Sodium Chloride Flush Syringe 10 Ml) 10 ml IV PRN PRN PRN Reason: LINE FLUSH Review of Systems All systems: negative Physical Examination Vital signs: Vital Signs Temp Pulse Resp BP Pulse Ox 97.8 F 78 18 143/97 100 11/26/19 07:55 11/26/19 07:55 11/26/19 07:55 11/26/19 07:55 11/26/19 07:55 Reviewed General appearance: Present: no acute distress, well-nourished - EENT Eyes: Present: PERRL ENT: hearing intact, clear oral mucosa - Neck Neck: Present: supple, normal ROM - Respiratory Respiratory effort: normal Respiratory: bilateral: CTA - Cardiovascular Heart Sounds: Present: S1 & S2. Absent: rub, click - Extremities Extremities: pulses symmetrical, No edema Peripheral Pulses: within normal limits - Abdominal General gastrointestinal: Present: soft, non-tender, non-distended, normal bowel sounds Male genitourinary: Present: normal - Integumentary Integumentary: Present: clear, warm, dry - Musculoskeletal Musculoskeletal: gait normal, strength equal bilaterally - Psychiatric Psychiatric: appropriate mood/affect, intact judgment & insight - Neurologic Neurologic: CNII-XII intact, moves all extremities Results - Laboratory Findings CBC and BMP: 11/26/19 09:26 11/27/19 12:32 Abnormal lab findings: Abnormal Labs 11/26/19 11/26/19 11/26/19 08:42 09:26 09:26 Hgb 15.6 H Hct 46.9 H Sodium 128 L Chloride 93.5 L Carbon Dioxide 5 L* BUN 8 L Creatinine Glucose 344 H POC Glucose 306 H 11/26/19 11/26/19 11/26/19 11:23 12:52 13:50 Hgb Hct Sodium Chloride Carbon Dioxide BUN Creatinine Glucose POC Glucose 256 H 194 H 148 H 11/26/19 11/26/19 11/26/19 14:12 15:41 15:44 Hgb Hct Sodium 129 L 132 L Chloride 97.7 L 94.8 L Carbon Dioxide 9 L* 12 L BUN 8 L 7 L Creatinine Glucose 152 H 115 H POC Glucose 106 H 11/26/19 11/26/19 11/26/19 17:58 18:15 18:51 Hgb Hct Sodium 131 L Chloride 93.5 L Carbon Dioxide 12 L BUN 7 L Creatinine Glucose 134 H POC Glucose 108 H 143 H 11/26/19 11/26/19 11/26/19 20:24 20:29 21:59 Hgb Hct Sodium 130 L Chloride 94.8 L Carbon Dioxide 14 L BUN 7 L Creatinine Glucose 166 H POC Glucose 164 H 159 H 11/26/19 11/27/19 11/27/19 23:26 00:22 02:06 Hgb Hct Sodium 133 L Chloride 97.5 L Carbon Dioxide 19 L BUN 6 L Creatinine Glucose 111 H POC Glucose 124 H 141 H 11/27/19 11/27/19 11/27/19 02:19 03:24 03:24 Hgb Hct Sodium 133 L Chloride 97.6 L Carbon Dioxide 18 L BUN 6 L Creatinine Glucose 133 H POC Glucose 106 H 116 H 11/27/19 11/27/19 11/27/19 04:42 05:41 06:37 Hgb Hct Sodium Chloride Carbon Dioxide BUN Creatinine Glucose POC Glucose 162 H 166 H 194 H 11/27/19 11/27/19 11/27/19 07:40 08:53 10:31 Hgb Hct Sodium 134 L Chloride Carbon Dioxide 19 L BUN 4 L Creatinine Glucose 127 H POC Glucose 162 H 154 H 11/27/19 11/27/19 10:42 12:32 Hgb Hct Sodium 130 L Chloride Carbon Dioxide 18 L BUN 5 L Creatinine 0.7 L Glucose 190 H POC Glucose 121 H Assessment and Plan Diabetic ketoacidosis -Continue all therapies per DKA protocol -IV insulin therapy, once AG is closed transition to weight based, basal bolus insulin therapy -Serial BMPs -Diabetic education -Supportive care Once he is off insulin therapy can downgrade to Med-[facility] floor. Thank you for the consult. Please do not hesitate to call with questions or concerns
[2019-11-27] MEDS ORDERED: INSULIN REGULAR, HUMAN 100 UNITS/1 ML ONE ×2 (15:23→17:08)
[2019-11-27] MEDS: INSULIN NPH/REGULAR 70/30 INJ SUB-Q SCH (21:16)
[2019-11-28] MEDS: INSULIN REGULAR, HUMAN 100 UNITS/1 ML SUB-Q SCH ×3 (06:47→12:51)
[2019-11-28] MEDS: INSULIN NPH/REGULAR 70/30 INJ SUB-Q SCH (08:25)
--- NOTE | 2019-11-28 08:57 | Discharge Summary ---
Providers - Providers Date of Admission: 11/26/19 10:13 Date of discharge: 11/28/19 Attending physician: LILY CANTRELL 11/27/19 09:07 Consult to Physician [CONS] Routine Comment: Consulting Provider: HUGO BOOGIE Physician Instructions: Reason For Exam: critical care Primary care physician: CLASSIFIED AD TAKER Hospitalization Reason for admission: DKA Condition: Good Hospital course: 28-year-old male with past medical history of type 1 diabetes mellitus who presents to the emergency department with complaints of hyperglycemia, nausea and vomiting. The patient typically takes 70/30 insulin but A family member accidentally threw out his insulin a few days ago. The patient was placed on IV fluid hydration and insulin drip. Anion gap closed and patient was transitioned to his home insulin regimen. Patient's blood sugar stabilized and he was felt to receive maximal hospital benefit for discharge. Dedicated discharge time 35 minutes. Disposition: DC- TO HOME OR SELFCARE Time spent for discharge: 35 - Discharge Diagnoses (1) Diabetic ketoacidosis Status: Acute Qualifiers: Diabetes mellitus type: type 1 Diabetes mellitus complication detail: without coma Qualified Code(s): E10.10 - Type 1 diabetes mellitus with ketoacidosis without coma Core Measure Documentation - Palliative Care Palliative Care/ Comfort Measures: Not Applicable - Core Measures Any of the following diagnoses?: none Exam - Constitutional Vitals: Temp Pulse Resp BP Pulse Ox 98.7 F 73 20 114/78 100 11/28/19 08:07 11/28/19 08:07 11/28/19 08:07 11/28/19 08:07 11/28/19 08:07 General appearance: Present: no acute distress, well-nourished - EENT Eyes: Present: PERRL ENT: hearing intact, clear oral mucosa - Neck Neck: Present: supple, normal ROM - Respiratory Respiratory effort: normal Respiratory: bilateral: CTA - Cardiovascular Heart Sounds: Present: S1 & S2. Absent: rub, click - Extremities Extremities: pulses symmetrical, No edema Peripheral Pulses: within normal limits - Abdominal General gastrointestinal: Present: soft, non-tender, non-distended, normal bowel sounds Male genitourinary: Present: normal - Integumentary Integumentary: Present: clear, warm, dry - Musculoskeletal Musculoskeletal: gait normal, strength equal bilaterally - Psychiatric Psychiatric: appropriate mood/affect, intact judgment & insight - Neurologic Neurologic: CNII-XII intact, moves all extremities Plan Activity: advance as tolerated Weight Bearing Status: Weight Bear as Tolerated Follow up with: PRIMARY CARE, [Primary Care Provider] - 3-5 Days Prescriptions: Insulin NPH/Regular [NovoLIN 70/30] 15 unit SUB-Q BIDDIAB #1 vial Insulin NPH/Regular [NovoLIN 70/30] 15 unit SUB-Q BIDDIAB 30 Days units
[2019-11-28] MEDS: ENOXAPARIN 40 MG/0.4 ML INJ SUB-Q SCH (10:05)
[2019-11-28 12:14] VITALS: BP 128/82
== END 2019-11-28 16:55 | disposition home or self-care (01) | DRG 639 ==
LOC: ED 07:52 → CC1 10:13 → 4A 11-27 11:22
PROVIDERS: ADMIT Hospitalist; ATTEND Hospitalist
DX: E10.10 Type 1 diabetes mellitus with ketoacidosis without coma (principal); Z87.442 Personal history of urinary calculi; Z79.4 Long term (current) use of insulin
CPT/HCPCS: 36415; 80048; 82550; 82962; 83735; 84100; 85014; 85018; 85049; 93005; G0378; J1650; J1815; J2765; J7040